=== PATIENT | female | born 1940 | race Caucasian/White ===

== ENCOUNTER 2022-10-01 15:29 | Outpatient (CLI) | payer MEDICARE, BC | END 2022-10-01 15:30 | disposition home or self-care (01) | LOC: CSHMAMMO 15:29 | PROVIDERS: ATTEND Family Medicine | DX: Z12.31 Encounter for screening mammogram for malignant neoplasm of breast (principal); R92.1 Mammographic calcification found on diagnostic imaging of breast; Z91.89 Other specified personal risk factors, not elsewhere classified; Z80.3 Family history of malignant neoplasm of breast | CPT/HCPCS: 77063; 77067 ==